=== PATIENT | male | born 1995 | race Two or more races ===

== ENCOUNTER 2023-01-01 11:06 | Emergency (ER) | payer MEDICAID, OTHER ==
[~2023-01-01] VITALS: Ht 175.3 cm; Wt 81.6 kg
[2023-01-01 12:10] VITALS: O2SAT 99
== END 2023-01-01 15:15 | disposition left against medical advice (07) ==
LOC: ER 11:06
DX: Z53.21 Procedure and treatment not carried out due to patient leaving prior to being seen by health care provider (principal)
CPT/HCPCS: A4663